=== PATIENT | female | born 1995 | race African-American/Black ===

== ENCOUNTER 2017-01-23 12:24 | Emergency (ER) | payer SELFPAY ==
[~2017-01-23] VITALS: Ht 162.6 cm; Wt 68.0 kg
[~2017-01-23 12:24] MED LIST: MACR100C PO
[2017-01-23 12:26] VITALS: BP 141/68; PULSE 71; RESP 15; TEMP 98.2; O2SAT 98
--- NOTE | 2017-01-23 13:07 | PD ---
HPI Chief Complaint: Cold / Flu Symptoms Time Seen by Provider: 12:51 Travel History International Travel<30 days: No Contact w/Intl Traveler<30days: No Traveled to known affect area: No History of Present Illness HPI Healthy 22-year-old female here with complaint of flulike symptoms. Patient isn 't symptomatic for the last 2 days since flying back to [facility], where she attends school from [place] where her parents live. She notes subjective fevers chills, body aches, slight cough and chest congestion. No documented fevers, no sick contacts that she does live in the dorms here at [facility]. [facility] Past Medical History Medical History: Denies Significant Hx Hx Anticoagulant Therapy: No Cardiovascular Problems: No Chemotherapy: No Cerebrovascular Accident: No Diabetes: No Diminished Hearing: No Respiratory: No Tetanus Vaccination: Unknown Influenza Vaccination: Yes ?: Not LMP: 01/05/17 : 0 Para: 0 Miscarriage: 0 : 0 Past Surgical History Surgical History: No Previous Surgery Hysterectomy: No Social History Alcohol Use: Yes (SOCIALLY) Tobacco Use: No Substance Use: No Allergies-Medications (Allergen,Severity, Reaction): Coded Allergies: No Known Allergies (Unverified , 01/23/17) Reported Meds & Prescriptions Reported Meds & Active Scripts Active Macrobid (Nitrofurantoin Macrocrystals) 100 Mg Cap 100 Mg PO BID 5 Days Review of Systems Except as stated in HPI: all other systems reviewed are Neg Physical Exam Narrative GENERAL: Well-appearing female in no acute distress SKIN: Warm and dry. HEAD: Atraumatic. Normocephalic. EYES: Pupils equal and round. No scleral icterus. No injection or drainage. ENT: No nasal bleeding or discharge. Mucous membranes pink and moist. TMs clear bilaterally. Posterior pharynx is clear. NECK: Supple CARDIOVASCULAR: Regular rate and rhythm. RESPIRATORY: No accessory muscle use. Clear to auscultation. Breath sounds equal bilaterally. GASTROINTESTINAL: Abdomen soft, non-tender, nondistended. MUSCULOSKELETAL: No obvious deformities No edema. NEUROLOGICAL: Awake and alert. Motor grossly within normal limits. Normal speech. PSYCHIATRIC: Appropriate mood and affect; insight and judgment normal. Data Data Last Documented VS Vital Signs Date Time Temp Pulse Resp B/P Pulse Ox O2 Delivery O2 Flow Rate FiO2 01/23/17 12:50 18 Room Air 01/23/17 12:26 98.2 71 141/68 98 [facility] Medical Decision Making Medical Screen Exam Complete: Yes Emergency Medical Condition: Yes Medical Record Reviewed: Yes Differential Diagnosis 22-year-old healthy female here with complaint of flulike symptoms 2 days. Patient is unremarkable on examination without any focal findings. Suspect viral syndrome. No evidence of otitis, pharyngitis, pneumonia on exam. Influenza is on the differential the patient has been symptomatic for more than 48 hours and would not warrant treatment with Tamiflu. Narrative Course Reassured and discharged home Diagnosis Primary Impression: Viral syndrome Referrals: Primary Care Physician as needed Additional Instructions: Tylenol, ibuprofen as needed Med/Other Pt SpecificInfo: No Change to Meds Disposition: 01 DISCHARGE HOME Condition: Stable Liz Oates MD Jan 23, 2017 13:07
== END 2017-01-23 13:33 | disposition home or self-care (01) ==
LOC: NEPB 12:24
DX: B34.9 Viral infection, unspecified (principal); M79.1 Myalgia; R05 Cough; R09.89 Other specified symptoms and signs involving the circulatory and respiratory systems
CPT/HCPCS: 99283

== ENCOUNTER 2017-02-03 18:40 | Emergency (ER) | payer SELFPAY ==
[~2017-02-03] VITALS: Ht 162.6 cm; Wt 80.0 kg
[2017-02-03 18:42] VITALS: BP 123/70; PULSE 97; RESP 12; TEMP 98.3; O2SAT 97
--- NOTE | 2017-02-03 18:47 | PD ---
Physical Exam Date Seen by Provider: Feb 03, 2017 Time Seen by Provider: 18:44 Narrative 22 YOBF WITH 2 DAYS OF VAG D/C. NO NO N/V, F/C, OR ABD PAIN VSS. AWAITING BED PLACEMENT Data Data Last Documented VS Vital Signs Date Time Temp Pulse Resp B/P Pulse Ox O2 Delivery O2 Flow Rate FiO2 02/03/17 18:42 98.3 97 12 123/70 97 MDM Medical Record Reviewed: Yes Supervised Visit with OVI: Yes Óscar Muhammad Feb 03, 2017 18:46
[2017-02-03 19:24] LABS: BLOOD, URINE SMALL (NEG); GLUCOSE,URINE NEG (NEG); KETONE, URINE NEG (NEG); MUCUS URINE FEW /lpf (OCC); NITRITE,URINE NEG (NEG); PH, URINE 7.5 (5.0-8.5); SQUAMOUS EPITHELIAL CELL URINE 9 /hpf (0-5); URINE COLOR YELLOW (YELLW/STRAW)
[2017-02-03 19:28] LABS: BACTERIA, URINE FEW /hpf; COMMENT (UR) CULTURE INDICATED; CULTURE IF INDICATED CULTURE INDICATED
--- NOTE | 2017-02-03 20:08 | PD ---
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 The patient is a 2 to three-day history of vaginal discharge which she describes as white creamy, pasty, thick, with no foul odor. She does complain of mild itching. The patient is sexually active, wears condoms most of the time. The patient's last menstrual cycle was earlier this month. The patient does have a history of gonorrhea and trichomonas, denies any known history of chlamydia. The patient denies any lower abdominal pain, pelvic pain, nausea, vomiting, but does complain of mild dysuria. PFSH Past Medical History Hx Anticoagulant Therapy: No Cardiovascular Problems: No Chemotherapy: No Cerebrovascular Accident: No Diabetes: No Diminished Hearing: No Respiratory: No ?: Not : 0 Para: 0 Miscarriage: 0 : 0 Past Surgical History Hysterectomy: No Social History Alcohol Use: No Tobacco Use: No Substance Use: No Allergies-Medications (Allergen,Severity, Reaction): Coded Allergies: No Known Allergies (Unverified , 02/03/17) Reported Meds & Prescriptions Reported Meds & Active Scripts Active Macrobid (Nitrofurantoin Macrocrystals) 100 Mg Cap 100 Mg PO BID 5 Days Review of Systems Except as stated in HPI: all other systems reviewed are Neg General / Constitutional: No: Fever Gastrointestinal: No: Nausea, Vomiting, Abdominal Pain Genitourinary: Positive: Dysuria, Discharge, No: Pelvic Pain, Vaginal Bleeding Skin: Positive Itching, No Rash Physical Exam Narrative GENERAL: Awake, alert, pleasant 22-year-old female who appears her stated age and is in no acute respiratory distress. SKIN: Focused skin assessment warm/dry. HEAD: Atraumatic. Normocephalic. EYES: No injection or drainage. NECK: Trachea midline. No JVD. GASTROINTESTINAL: Abdomen soft, non-tender, nondistended. No suprapubic tenderness. Back: No CVA tenderness. Pelvic: The exam was performed in the presence of a female nurse. External examination reveals no rashes or lesions. Speculum examination reveals mild erythema of the vaginal wall with thick white, clumpy vaginal discharge noted in the vaginal vault. Cervix is closed. No cervical motion tenderness. No adnexal tenderness. MUSCULOSKELETAL: No obvious deformities. No clubbing. No cyanosis. No edema. NEUROLOGICAL: Awake and alert. No obvious cranial nerve deficits. Motor grossly within normal limits. Normal speech. PSYCHIATRIC: Appropriate mood and affect; insight and judgment normal. Data Data Last Documented VS Vital Signs Date Time Temp Pulse Resp B/P Pulse Ox O2 Delivery O2 Flow Rate FiO2 02/03/17 18:42 98.3 97 12 123/70 97 Orders Ed Urine Pregnancytest Poc (02/03/17 18:52) Urinalysis - C+S If Indicated (02/03/17 18:52) Urine Culture (02/03/17 18:45) Gc And Chlamydia Pcr (02/03/17 20:02) Wet Prep Profile (02/03/17 20:02) Labs Laboratory Tests Test 02/03/17 18:45 Urine Color YELLOW Urine Turbidity HAZY Urine pH 7.5 Urine Specific [place] 1.015 Urine Protein NEG mg/dL Urine Glucose (UA) NEG mg/dL Urine Ketones NEG mg/dL Urine Occult Blood SMALL Urine Nitrite NEG Urine Bilirubin NEG Urine Urobilinogen LESS THAN 2.0 MG/DL Urine Leukocyte Esterase LARGE Urine RBC LESS THAN 1 /hpf Urine WBC 9 /hpf Urine Squamous Epithelial 9 /hpf Cells Urine Bacteria FEW /hpf Urine Mucus FEW /lpf Microscopic Urinalysis Comment CULTURE INDICATED MDM Medical Decision Making Medical Screen Exam Complete: Yes Emergency Medical Condition: Yes Medical Record Reviewed: Yes Interpretation(s) Laboratory Tests Test 02/03/17 18:45 Urine Color YELLOW Urine Turbidity HAZY Urine pH 7.5 Urine Specific [place] 1.015 Urine Protein NEG mg/dL Urine Glucose (UA) NEG mg/dL Urine Ketones NEG mg/dL Urine Occult Blood SMALL Urine Nitrite NEG Urine Bilirubin NEG Urine Urobilinogen LESS THAN 2.0 MG/DL Urine Leukocyte Esterase LARGE Urine RBC LESS THAN 1 /hpf Urine WBC 9 /hpf Urine Squamous Epithelial 9 /hpf Cells Urine Bacteria FEW /hpf Urine Mucus FEW /lpf Microscopic Urinalysis Comment CULTURE INDICATED Differential Diagnosis Differential diagnosis includes vaginitis, cervicitis, PID, Trichomonas, bacterial vaginosis, UTI, yeast infection. Narrative Course Bedside UA test was obtained, was negative. UA is unremarkable. A pelvic exam was performed, wet prep was sent to lab and gonorrhea/chlamydia PCR was ordered via UA. The patient's gonorrhea and chlamydia are pending, however , patient is concerned about a possible infection. After discussion with patient was agreed we would treat for gonorrhea and chlamydia with Rocephin and Zithromax. The wet prep was unable to be performed as it was placed in the wrong tube. I had a discussion with the patient regarding repeating a pelvic exam and wet prep versus treating for Trichomonas/BB/East infection. After discussion with the patient was agreed we would treat her for possible BV and use with Flagyl and Diflucan. She is advised to follow-up with her primary physician and the health department if symptoms persist. Diagnosis Primary Impression: Vaginal discharge Additional Impression: Vaginitis Qualified Code: N76.0 - Acute vaginitis Patient Instructions: General Instructions Additional Instructions: Medications as directed. Follow-up with her primary physician and/or the health department. Return if symptoms worsen or progress. Med/Other Pt SpecificInfo: Prescription(s) given Scripts Fluconazole (Diflucan)150 Mg Plt353 Mg PO ONCE #1 TAB Ref 0 Prov:Anupam Bahena MD 02/03/17 Metronidazole (Flagyl)500 Mg Umv942 Mg PO BID 7 Days Ref 0 Prov:Anupam Bahena MD 02/03/17 Disposition: 01 DISCHARGE HOME Condition: Stable Anupam Bahena MD Feb 03, 2017 20:08
[2017-02-03] MEDS ORDERED: DIFL150T PO (21:08)
[2017-02-03] MEDS ORDERED: METR-1 PO (21:08)
[2017-02-03] MEDS ORDERED: LIDOCAINE HCL 1% 50 ML VIAL IM ONE (21:15)
[2017-02-03] MEDS ORDERED: cefTRIAXone 250 MG VIAL IM ONE (21:15)
[2017-02-03] MEDS ORDERED: AZITHROMYCIN PWD FOR SUSP 1 GM PACKET PO ONE (21:15)
[2017-02-03 23:12] LABS: CHLAMYDIA PCR NOT DETECTED (NOT DETECT); NEISSERIA PCR NOT DETECTED (NOT DETECT)
== END 2017-02-03 22:17 | disposition home or self-care (01) ==
LOC: NEPA 18:40
DX: N76.0 Acute vaginitis (principal); B96.89 Other specified bacterial agents as the cause of diseases classified elsewhere
CPT/HCPCS: 81001; 84703; 87086; 87491; 87591; 96372; 99283; J0696

== ENCOUNTER 2017-06-18 18:19 | Emergency (ER) | payer OTHER ==
[~2017-06-18] VITALS: Ht 162.6 cm; Wt 96.0 kg
[~2017-06-18 18:19] MED LIST changes: +DIFL150T PO; +METR-1 PO
[2017-06-18 18:20] VITALS: BP 139/73; PULSE 62; RESP 16; TEMP 98.7; O2SAT 99
--- NOTE | 2017-06-18 22:19 | PD ---
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 Patient states that she had a menstrual cycle the end of last month , but states it was different than normal. She also states she is having some abnormal vaginal discharge approximately she may have BV or yeast infection. She has not taken a test at home. The patient states that she was tested for STDs, but has had new sexual partner since. She reports 3 sexual partners last 6 months. She is not using protection. Patient denies any fevers or chills. She has no chronic medical problems and takes no prescribed medications. Patient has never been before. PFSH Past Medical History Hx Anticoagulant Therapy: No Cardiovascular Problems: No Chemotherapy: No Cerebrovascular Accident: No Diabetes: No Diminished Hearing: No Respiratory: No ?: Unknown LMP: 08 April 2017 : 0 Para: 0 Miscarriage: 0 : 0 Past Surgical History Hysterectomy: No Social History Alcohol Use: No Tobacco Use: No Substance Use: No Allergies-Medications (Allergen,Severity, Reaction): Coded Allergies: No Known Allergies (Unverified , 02/03/17) Reported Meds & Prescriptions Reported Meds & Active Scripts Active Diflucan (Fluconazole) 150 Mg Tab 150 Mg PO ONCE Flagyl (Metronidazole) 500 Mg Tab 500 Mg PO BID 7 Days Macrobid (Nitrofurantoin Macrocrystals) 100 Mg Cap 100 Mg PO BID 5 Days Review of Systems Except as stated in HPI: all other systems reviewed are Neg Physical Exam Narrative GENERAL: Well-nourished, well-developed female patient, ambulatory. Afebrile. SKIN: Focused skin assessment warm/dry. HEAD: Normocephalic. Atraumatic. EYES: No scleral icterus. No injection or drainage. NECK: Supple, trachea midline. No JVD or lymphadenopathy. CARDIOVASCULAR: Regular rate and rhythm without murmurs, gallops, or rubs. RESPIRATORY: Breath sounds equal bilaterally. No accessory muscle use. Lungs sounds are clear to auscultation. GASTROINTESTINAL: Abdomen soft, non-tender, nondistended. MUSCULOSKELETAL: No cyanosis, or edema. BACK: Nontender without obvious deformity. No CVA tenderness. GENITOURINARY: Normal external genitalia without lesions or erythema. Vaginal vault with thick white drainage noted. Cervical os was closed without drainage. No cervical motion tenderness. Uterus nontender and nonenlarged. Bilateral adnexa nontender without masses. Pelvic exam was done with RNDagmar, at bedside. Data Data Last Documented VS Vital Signs Date Time Temp Pulse Resp B/P Pulse Ox O2 Delivery O2 Flow Rate FiO2 06/18/17 18:20 98.7 62 16 139/73 99 Orders Urinalysis - C+S If Indicated (06/18/17 22:17) Ed Urine Pregnancytest Poc (06/18/17 22:17) Gc And Chlamydia Pcr (06/18/17 22:17) Wet Prep Profile (06/18/17 22:17) Azithromycin Powd Pack (Zithromax Powd P (06/18/17 22:45) Ceftriaxone Inj (Rocephin Inj) (06/18/17 22:45) Lidocaine 1% Inj (50 Ml) (Xylocaine 1% I (06/18/17 22:45) Labs Laboratory Tests Test 06/18/17 06/18/17 22:30 22:42 Urine Color YELLOW Urine Turbidity HAZY Urine pH 6.0 Urine Specific [place] 1.034 Urine Protein TRACE mg/dL Urine Glucose (UA) NEG mg/dL Urine Ketones 10 mg/dL Urine Occult Blood NEG Urine Nitrite NEG Urine Bilirubin NEG Urine Urobilinogen 2.0 MG/DL Urine Leukocyte Esterase NEG Urine RBC 1 /hpf Urine WBC 1 /hpf Urine Squamous Epithelial 16 /hpf Cells Urine Hyaline Casts 5 /lpf Urine Mucus MANY /lpf Microscopic Urinalysis Comment CULT NOT INDICATED Clue Cells (Wet Prep) NONE SEEN Vaginal Trichomonas (Wet Prep) NONE SEEN Vaginal Yeast (Wet Prep) NONE SEEN MDM Medical Decision Making Medical Screen Exam Complete: Yes Emergency Medical Condition: Yes Medical Record Reviewed: Yes Differential Diagnosis Cervicitis versus vaginal discharge versus UTI versus Narrative Course 22-year-old female presents to the emergency department for evaluation of abnormal vaginal discharge, intermittent abdominal cramping. Abdominal exam is benign. UA, urine test, swab for chlamydia and gonorrhea, wet prep are ordered and pending. Patient gives verbal consent for pelvic exam. UA is pending. Urine test is negative. Wet prep is negative. Patient is prophylactically treated with Rocephin 250 mg IM, azithromycin 1 g by mouth. UA is negative. Patient is stable for discharge follow-up with her primary care physician. She is instructed to abstain from sex until she has her test results and has sexual partner tested. She verbalizes agreement and understanding. The patient was discharged in stable condition with instructions, including return instructions and follow up instructions. Diagnosis Primary Impression: Vaginal discharge Referrals: Primary Care Physician call for appointment Patient Instructions: General Instructions, Vaginal Discharge (ED) Additional Instructions: Do not resume sex until you have your test results and have sexual partners tested. Follow-up with your primary care physician. Return to the emergency department for any acute worsening of symptoms. Med/Other Pt SpecificInfo: No Change to Meds Disposition: 01 DISCHARGE HOME Condition: Stable Velia Marrero Jun 18, 2017 22:19
[2017-06-18] MEDS ORDERED: LIDOCAINE HCL 1% 50 ML VIAL IM ONE (22:45)
[2017-06-18] MEDS ORDERED: AZITHROMYCIN PWD FOR SUSP 1 GM PACKET PO ONE (22:45)
[2017-06-18] MEDS ORDERED: cefTRIAXone 250 MG VIAL IM ONE (22:45)
[2017-06-18 23:06] LABS: BLOOD, URINE NEG (NEG); COMMENT (UR) CULT NOT INDICATED; CULTURE IF INDICATED CULT NOT INDICATED; GLUCOSE,URINE NEG (NEG); HYALINE CAST, URINE 5 /lpf (RARE); KETONE, URINE 10 mg/dL (NEG); MUCUS URINE MANY /lpf (OCC); NITRITE,URINE NEG (NEG); SQUAMOUS EPITHELIAL CELL URINE 16 /hpf (0-5); URINE COLOR YELLOW (YELLW/STRAW)
[2017-06-18 23:43] VITALS: BP 142/77; PULSE 55; RESP 18; O2SAT 99
[2017-06-19 01:27] LABS: CHLAMYDIA PCR NOT DETECTED (NOT DETECT); NEISSERIA PCR NOT DETECTED (NOT DETECT)
== END 2017-06-18 23:42 | disposition home or self-care (01) ==
LOC: NEPD 18:19
DX: N89.8 Other specified noninflammatory disorders of vagina (principal); R10.9 Unspecified abdominal pain
CPT/HCPCS: 81001; 84703; 87210; 87491; 87591; 96372; 99284; J0696

== ENCOUNTER 2017-08-20 17:46 | Emergency (ER) | payer SELFPAY ==
[~2017-08-20] VITALS: Ht 162.6 cm; Wt 94.5 kg
[2017-08-20 17:57] VITALS: BP 132/81; PULSE 72; RESP 16; TEMP 98.8; O2SAT 99
--- NOTE | 2017-08-20 17:58 | PD ---
Physical Exam Date Seen by Provider: Aug 20, 2017 Time Seen by Provider: 17:56 Narrative 22-year-old Afro-[place]ian female presents with complaints of lower abdominal pain and low back pain and question of BV. Patient reports vaginal discharge and symptoms for the past 4 days. Patient denies dysuria but has had some vaginal itching. Last menstrual period was July 24. Patient denies nausea or vomiting. No known drug allergies. [facility] Medical Record Reviewed: Yes Supervised Visit with OVI: Yes Narrative Course Vital signs are stable. Patient is awaiting medical bed placement. Condition: Stable Alfie Browning Aug 20, 2017 17:58
[2017-08-20 19:14] LABS: BLOOD, URINE NEG (NEG); COMMENT (UR) CULT NOT INDICATED; CULTURE IF INDICATED CULT NOT INDICATED; GLUCOSE,URINE NEG (NEG); KETONE, URINE NEG (NEG); MUCUS URINE FEW /lpf (OCC); NITRITE,URINE NEG (NEG); SQUAMOUS EPITHELIAL CELL URINE 3 /hpf (0-5); URINE COLOR YELLOW (YELLW/STRAW)
--- NOTE | 2017-08-20 19:18 | PD ---
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 She denies any fevers or chills. She's had 3 sexual partners in the past 6 months. She's had multiple episodes of bacterial vaginosis. PFSH Past Medical History Hx Anticoagulant Therapy: No Cardiovascular Problems: No Chemotherapy: No Cerebrovascular Accident: No Diabetes: No Diminished Hearing: No Reproductive: Yes (hx of trich and gonarrhea ) Respiratory: No Tetanus Vaccination: Never Vaccinated Influenza Vaccination: Yes ?: Unknown LMP: 07/24/17 : 0 Para: 0 Miscarriage: 0 : 0 Past Surgical History Hysterectomy: No Social History Alcohol Use: Yes (once a month ) Tobacco Use: No Substance Use: Yes (marijuana ) Allergies-Medications (Allergen,Severity, Reaction): Coded Allergies: No Known Allergies (Unverified , 02/03/17) Reported Meds & Prescriptions Reported Meds & Active Scripts Active Diflucan (Fluconazole) 150 Mg Tab 150 Mg PO ONCE Flagyl (Metronidazole) 500 Mg Tab 500 Mg PO BID 7 Days Macrobid (Nitrofurantoin Macrocrystals) 100 Mg Cap 100 Mg PO BID 5 Days Review of Systems Except as stated in HPI: all other systems reviewed are Neg Physical Exam Narrative GENERAL:Well appearing, no acute distress SKIN: Focused skin assessment warm and dry. HEAD: Atraumatic. Normocephalic. EYES: Pupils equal and round. No injection or drainage. ENT: Moist mucous membranes NECK: Trachea midline. CARDIOVASCULAR: Regular rate and rhythm. No murmur appreciated. RESPIRATORY: Clear to auscultation. Breath sounds equal bilaterally. GASTROINTESTINAL: Abdomen soft, non-tender, nondistended. PRIOR AUTHORIZATION NURSE: Copious white vaginal discharge in the vault with no cervical motion or adnexal tenderness. MUSCULOSKELETAL: No obvious deformities. NEUROLOGICAL: Awake and alert. No obvious cranial nerve deficits. Moving all extremities. PSYCHIATRIC: Appropriate mood and affect; insight and judgment normal. Data Data Last Documented VS Vital Signs Date Time Temp Pulse Resp B/P (MAP) Pulse Ox O2 Delivery O2 Flow Rate FiO2 08/20/17 18:26 18 08/20/17 17:57 98.8 72 132/81 (98) 99 Orders Orders Urinalysis - C+S If Indicated (08/20/17 18:32) Wet Prep Profile (08/20/17 18:41) Gc And Chlamydia Pcr (08/20/17 18:41) Labs Laboratory Tests Test 08/20/17 18:40 08/20/17 18:45 Urine Color YELLOW Urine Turbidity CLEAR Urine pH 5.0 Urine Specific [place] 1.031 Urine Protein NEG mg/dL Urine Glucose (UA) NEG mg/dL Urine Ketones NEG mg/dL Urine Occult Blood NEG Urine Nitrite NEG Urine Bilirubin NEG Urine Urobilinogen LESS THAN 2.0 MG/DL Urine Leukocyte Esterase NEG Urine RBC LESS THAN 1 /hpf Urine WBC 1 /hpf Urine Squamous Epithelial Cells 3 /hpf Urine Mucus FEW /lpf Microscopic Urinalysis Comment CULT NOT INDICATED Clue Cells (Wet Prep) NONE SEEN Vaginal Trichomonas (Wet Prep) NONE SEEN Vaginal Yeast (Wet Prep) NONE SEEN MDM Medical Decision Making Medical Screen Exam Complete: Yes Emergency Medical Condition: Yes Differential Diagnosis Vaginosis, gonorrhea, chlamydia, Trichomonas Narrative Course This is a 22-year-old female who presents to the emergency department with vaginal discharge. She's had multiple episodes of bacterial vaginosis in the past but she's also had 3 sexual partners in the past 6 months. Pelvic exam demonstrates discharge but no signs of PID. Patient will be treated empirically for cervicitis as her wet prep is negative. Diagnosis Primary Impression: Vaginal discharge Patient Instructions: General Instructions Additional Instructions: If you develop fever, chills, severe abdominal pain, persistent vomiting or inability to eat return to the emergency department. Your pelvic exam today did not include a Pap smear. It is important to followup with a prison keeper on a yearly basis to be tested for cervical cancer as we do not do that from the emergency department. If there is a concern that you have sexually transmitted disease, your partner should be tested. You should followup with your prison keeper or with the health department to get tested for other sexually transmitted diseases like HIV and syphilis, as we do not test for these in the emergency department Med/Other Pt SpecificInfo: No Change to Meds Disposition: 01 DISCHARGE HOME Condition: Stable Rosalia Araujo MD Aug 20, 2017 19:18
[2017-08-20] MEDS ORDERED: cefTRIAXone 250 MG VIAL IM ONE (19:30)
[2017-08-20] MEDS ORDERED: AZITHROMYCIN PWD FOR SUSP 1 GM PACKET PO ONE (19:30)
[2017-08-20] MEDS ORDERED: LIDOCAINE HCL 1% 50 ML VIAL IM ONE (19:30)
[2017-08-20 19:32] VITALS: BP 122/67
[2017-08-20 21:53] LABS: CHLAMYDIA PCR NOT DETECTED (NOT DETECT); NEISSERIA PCR NOT DETECTED (NOT DETECT)
== END 2017-08-20 19:55 | disposition home or self-care (01) ==
LOC: NEPD 17:46
DX: N89.8 Other specified noninflammatory disorders of vagina (principal)
CPT/HCPCS: 81001; 87210; 87491; 87591; 96372; 99284; J0696

== ENCOUNTER 2017-10-05 12:17 | Emergency (ER) | payer SELFPAY ==
[2017-10-05 12:18] VITALS: BP 144/90; PULSE 84; RESP 16; TEMP 98.8; O2SAT 96
[2017-10-05 13:10] LABS: BACTERIA, URINE RARE /hpf; BLOOD, URINE NEG (NEG); GLUCOSE,URINE NEG (NEG); KETONE, URINE NEG (NEG); MUCUS URINE FEW /lpf (OCC); NITRITE,URINE NEG (NEG); SQUAMOUS EPITHELIAL CELL URINE 8 /hpf (0-5); URINE COLOR YELLOW (YELLW/STRAW)
[2017-10-05 13:16] LABS: COMMENT (UR) CULT NOT INDICATED; CULTURE IF INDICATED CULT NOT INDICATED
--- NOTE | 2017-10-05 13:24 | PD ---
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 Said she was treated with Flagyl for bacterial vaginosis 2 weeks ago. Denies vaginal discharge or odor. Denies abdominal pain, fever, vomiting, dysuria, urinary frequency. Has not taken any medications in the last couple days or tried any treatments to alleviate her symptoms. Reports being sexually active. Unknown exposure to STD/STI. No known aggravating or relieving factors. Has menstrual period was September 22, 2017. Denies contraception. No known allergies. Does not have an established primary care provider in this area. Denies significant past medical history. No current medications. Has no other medical complaints. No other modifying factors or associated signs and symptoms. PFSH Past Medical History Medical History: Denies Significant Hx Hx Anticoagulant Therapy: No Cardiovascular Problems: No Chemotherapy: No Cerebrovascular Accident: No Diabetes: No Diminished Hearing: No Reproductive: Yes (hx of trich and gonarrhea ) Respiratory: No Tetanus Vaccination: < 5 Years ?: Unknown LMP: 09/22/2017 : 0 Para: 0 Miscarriage: 0 : 0 Past Surgical History Surgical History: No Previous Surgery Hysterectomy: No Social History Alcohol Use: Yes (once a month ) Tobacco Use: No Substance Use: Yes (marijuana ) Allergies-Medications (Allergen,Severity, Reaction): Coded Allergies: No Known Allergies (Unverified Adverse Reaction, Unknown, 10/05/17) Reported Meds & Prescriptions Reported Meds & Active Scripts Active Flagyl (Metronidazole) 500 Mg Tab 500 Mg PO BID 7 Days Diflucan (Fluconazole) 150 Mg Tab 150 Mg PO ONCE Review of Systems Except as stated in HPI: all other systems reviewed are Neg Physical Exam Narrative GENERAL: Well-nourished, well-developed black female female patient, in no acute distress; afebrile, nontoxic-appearing SKIN: Warm and dry. HEAD: Atraumatic. Normocephalic. EYES: Pupils equal and round. No scleral icterus. No injection or drainage. ENT: Mucous membranes pink and moist. NECK: Trachea midline. No lymphadenopathy. CARDIOVASCULAR: Regular rate and rhythm. No murmur appreciated. RESPIRATORY: No accessory muscle use. Clear to auscultation. Breath sounds equal bilaterally. GASTROINTESTINAL: Abdomen soft, non-tender, nondistended. Bilateral pelvic region nontender to palpation. Hepatic and splenic margins not palpable. No guarding, rigidity, rebound tenderness. PELVIC: Exam done in the presence of a nurse. Vagina opening with edema and foul-smelling, thick, white cottage cheese appearing discharge noted. Bimanual exam reveals no palpable masses or adnexa tenderness, no uterine tenderness. No cervical motion tenderness. BACK: No CVA tenderness. MUSCULOSKELETAL: No obvious deformities. No clubbing. No cyanosis. No edema. NEUROLOGICAL: Awake and alert. No obvious cranial nerve deficits. Motor grossly within normal limits. Normal speech. PSYCHIATRIC: Appropriate mood and affect; insight and judgment normal. Data Data Last Documented VS Vital Signs Date Time Temp Pulse Resp B/P (MAP) Pulse Ox O2 Delivery O2 Flow Rate FiO2 10/05/17 13:52 10/05/17 12:18 98.8 84 16 96 Orders Orders Urinalysis - C+S If Indicated (10/05/17 12:23) Gc And Chlamydia Pcr (10/05/17 12:23) Ed Urine Pregnancytest Poc (10/05/17 13:25) Ed Discharge Order (10/05/17 13:43) Labs Laboratory Tests Test 10/05/17 12:35 Urine Color YELLOW Urine Turbidity HAZY Urine pH 6.0 Urine Specific [place] 1.019 Urine Protein NEG mg/dL Urine Glucose (UA) NEG mg/dL Urine Ketones NEG mg/dL Urine Occult Blood NEG Urine Nitrite NEG Urine Bilirubin NEG Urine Urobilinogen LESS THAN 2.0 MG/DL Urine Leukocyte Esterase LARGE Urine RBC 2 /hpf Urine WBC 2 /hpf Urine Squamous Epithelial Cells 8 /hpf Urine Bacteria RARE /hpf Urine Mucus FEW /lpf Microscopic Urinalysis Comment CULT NOT INDICATED MDM Medical Decision Making Medical Screen Exam Complete: Yes Emergency Medical Condition: Yes Medical Record Reviewed: Yes Differential Diagnosis Bacterial vaginosis, vaginal yeast, chlamydia, gonorrhea, Trichomonas, vaginitis Narrative Course This is a 22-year-old female whose been seen multiple times with similar complaints here at [place]. Each time she's been seen with this complaint she' s been negative for bacterial vaginosis, trichomoniasis, vaginal yeast, chlamydia and gonorrhea. Suspecting vaginal yeast and/or serial vaginosis. Urinalysis ordered. Urine Chlamydia and gonorrhea pending. 1325: Urinalysis without signs of infection. I will treat the patient with Diflucan and Flagyl. Instructed patient to follow up with health department, primary care provider, [facility] for follow-up. Instructed patient to follow up with primary care provider. Patient verbalizes understanding and agreement with treatment plan. Patient is medically cleared and stable for discharge. Discussed reasons to return to the emergency department. Patient agrees with treatment plan. The patients vital signs are stable and the patient is stable for outpatient follow-up and treatment. Patient discharged home, stable and in no acute distress. Diagnosis Primary Impression: Vaginitis Qualified Codes: N76.0 - Acute vaginitis Referrals: [facility] Laboratory Manager [facility] 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/health department Return to the emergency department immediately with worsening of symptoms Med/Other Pt SpecificInfo: Prescription(s) given Scripts Metronidazole (Flagyl) 500 Mg Tab 500 MG PO BID for Infection for 7 Days, TAB 0 Refills Prov: Stephanie Shah 10/05/17 Fluconazole (Diflucan) 150 Mg Tab 150 MG PO ONCE for Infection, #1 TAB 0 Refills Prov: Stephanie Shah 10/05/17 Disposition: 01 DISCHARGE HOME Condition: Stable Stephanie Shah Oct 05, 2017 13:24
[2017-10-05] MEDS ORDERED: DIFL150T PO (13:40)
[2017-10-05] MEDS ORDERED: METR-1 PO (13:40)
[2017-10-05 16:00] LABS: CHLAMYDIA PCR NOT DETECTED (NOT DETECT); NEISSERIA PCR NOT DETECTED (NOT DETECT)
== END 2017-10-05 14:02 | disposition home or self-care (01) ==
LOC: NEPD 12:17
DX: N76.0 Acute vaginitis (principal); Z79.899 Other long term (current) drug therapy
CPT/HCPCS: 81001; 84703; 87491; 87591; 99284